=== PATIENT | male | born 1970 | race Caucasian/White ===

== ENCOUNTER 2019-07-20 10:35 | Emergency (ER) | payer MEDICARE, MEDICAID ==
[~2019-07-20] VITALS: Ht 188 cm; Wt 91.0 kg
[~2019-07-20 10:35] MED LIST: ORPH100T2 PO
[2019-07-20 10:38] VITALS: BP 129/88
--- NOTE | 2019-07-20 11:47 | NUR ---
Pt called SN to room and stated he would like to leave. I apologized to pt and stated that he was next to be seen, and an additional physician would be here at 1200. Pt agreeable at this time.
[2019-07-20] MEDS ORDERED: IBUP-1984 PO (12:48)
[2019-07-20] MEDS ORDERED: PENI500T2 PO (12:48)
[2019-07-20] MEDS ORDERED: penicillin V potassium 500mg tablet PO ONE (12:50)
== END 2019-07-20 13:10 | disposition home or self-care (01) ==
LOC: ER 10:36
DX: K02.9 Dental caries, unspecified (principal); K04.7 Periapical abscess without sinus; G89.29 Other chronic pain; F41.9 Anxiety disorder, unspecified; F31.9 Bipolar disorder, unspecified; F17.200 Nicotine dependence, unspecified, uncomplicated; F10.99 Alcohol use, unspecified with unspecified alcohol-induced disorder; Z98.890 Other specified postprocedural states; Z79.899 Other long term (current) drug therapy; Y90.9 Presence of alcohol in blood, level not specified
CPT/HCPCS: 99283

== ENCOUNTER 2019-08-18 08:58 | Emergency (ER) | payer OTHER, MEDICARE, MEDICAID ==
[~2019-08-18] VITALS: Ht 188 cm; Wt 95.5 kg
[~2019-08-18 08:58] MED LIST changes: +IBUP-1984 PO; +PENI500T2 PO
[2019-08-18 09:03] VITALS: BP 116/82
[2019-08-18] MEDS ORDERED: ibuprofen tablet 400 MG TABLET PO ONE (09:25)
--- NOTE | 2019-08-18 10:02 | NUR ---
PT MOVED TO ER 2 WITH HIS [facility] THAT IS ALSO A PT IN BED 2.
[2019-08-18] MEDS ORDERED: CYCL-1 PO (10:07)
[2019-08-18] MEDS ORDERED: IBUP-1984 PO (10:07)
== END 2019-08-18 10:25 | disposition home or self-care (01) ==
LOC: ER 08:58
DX: S16.1XXA Strain of muscle, fascia and tendon at neck level, initial encounter (principal); G89.29 Other chronic pain; F17.200 Nicotine dependence, unspecified, uncomplicated; Z98.890 Other specified postprocedural states; V49.59XA Passenger injured in collision with other motor vehicles in traffic accident, initial encounter; Y93.89 Activity, other specified; Y92.413 State road as the place of occurrence of the external cause; Y99.9 Unspecified external cause status
CPT/HCPCS: 72125; 99284

== ENCOUNTER 2020-01-11 18:57 | Emergency (ER) | payer MEDICARE, MEDICAID ==
[~2020-01-11] VITALS: Ht 190.5 cm; Wt 113.6 kg
[~2020-01-11 18:57] MED LIST changes: +CYCL-1 PO; -IBUP-1984 PO; -PENI500T2 PO
[2020-01-11] MEDS ORDERED: NAPR-56 PO (20:03)
[2020-01-11] MEDS ORDERED: CEPH250T PO (20:03)
[2020-01-11 20:12] VITALS: BP 128/85
== END 2020-01-11 20:25 | disposition home or self-care (01) ==
LOC: ER 20:23
DX: K08.89 Other specified disorders of teeth and supporting structures (principal); G89.29 Other chronic pain; F41.9 Anxiety disorder, unspecified; F31.9 Bipolar disorder, unspecified; Z98.890 Other specified postprocedural states; Z72.89 Other problems related to lifestyle; Z79.899 Other long term (current) drug therapy
CPT/HCPCS: 99283

== ENCOUNTER 2020-10-17 08:54 | Emergency (ER) | payer MEDICARE, MEDICAID ==
[~2020-10-17] VITALS: Ht 188 cm; Wt 102.3 kg
[2020-10-17 09:19] VITALS: BP 120/97
[2020-10-17] MEDS ORDERED: ketorolac trometh inj. 60 MG/2 ML VIAL IM ONE (09:50)
[2020-10-17] MEDS ORDERED: NAPR-56 PO (09:50)
== END 2020-10-17 10:08 | disposition home or self-care (01) ==
LOC: ER 08:55
DX: M25.552 Pain in left hip (principal); M76.32 Iliotibial band syndrome, left leg; G89.29 Other chronic pain; Z87.81 Personal history of (healed) traumatic fracture; Z98.890 Other specified postprocedural states; Z72.89 Other problems related to lifestyle; Z79.899 Other long term (current) drug therapy; Y84.8 Other medical procedures as the cause of abnormal reaction of the patient, or of later complication, without mention of misadventure at the time of the procedure; Y79.3 Surgical instruments, materials and orthopedic devices (including sutures) associated with adverse incidents
CPT/HCPCS: 73502; 96372; 99283; J1885